=== PATIENT | male | born 1995 | race Two or more races ===

== ENCOUNTER 2021-06-27 19:13 | Emergency (ER) | payer OTHER ==
[~2021-06-27] VITALS: Ht 175.3 cm; Wt 99.8 kg
[2021-06-27] MEDS ORDERED: IBUPROFEN 800 MG TAB PO ONE (21:30)
[2021-06-27] MEDS ORDERED: ACETAMINOPHEN 500 MG TAB PO ONE (21:30)
[2021-06-27 23:12] VITALS: BP 130/74
== END 2021-06-27 22:15 | disposition home or self-care (01) ==
LOC: ER 19:16
DX: S62.346A Nondisplaced fracture of base of fifth metacarpal bone, right hand, initial encounter for closed fracture (principal); E66.9 Obesity, unspecified; Z68.32 Body mass index [BMI] 32.0-32.9, adult; W19.XXXA Unspecified fall, initial encounter; Y93.89 Activity, other specified; Y92.89 Other specified places as the place of occurrence of the external cause; Y99.8 Other external cause status
CPT/HCPCS: 29125; 73110; 73130